=== PATIENT | male | born 1995 | race Caucasian/White ===

== ENCOUNTER 2016-09-26 20:01 | Emergency (ER) | payer SELFPAY ==
[2016-09-26] MEDS ORDERED: PENICILLIN V POTASSIUM 500 MG TABLET PO ONE (22:24)
[2016-09-26] MEDS ORDERED: TRAMADOL HCL 50 MG TABLET PO ONE (22:24)
--- NOTE | 2016-09-26 22:27 | ER Document Report ---
ED General - General Chief Complaint: Jaw Pain Stated Complaint: MOUTH PAIN Time Seen by Provider: 09/26/16 22:00 Notes: Patient is a 21-year-old male who presents with complaint of pain in his jaw. Patient has several fractured teeth. Most his pain is coming from his upper left molar and premolars. No swelling. No difficulty breathing. No difficulty swallowing. No other complaints at this time. Pain does radiate into his left cheek and face TRAVEL OUTSIDE OF THE [place] IN LAST 30 DAYS: No - Related Data Allergies/Adverse Reactions: No Known Allergies Allergy (Unverified 07/16/15 19:09) Past Medical History - Social History Smoking Status: Never Smoker Frequency of alcohol use: None Drug Abuse: None Family History: Malignancy Patient has suicidal ideation: No Patient has homicidal ideation: No Renal/ Medical History: Denies: Hx Peritoneal Dialysis Past Surgical History: Reports: Hx Abdominal Surgery - hernia x 2, Hx Inguinal Hernia - Bilateral, Hx Oral Surgery - Immunizations Hx Diphtheria, Pertussis, Tetanus Vaccination: Yes Review of Systems - Review of Systems Notes: My Normal Review Basic REVIEW OF SYSTEMS: CONSTITUTIONAL : Denies fever, chills, or sweats. Denies recent illness. EENT: Dental pain RESPIRATORY: Denies cough, cold, or chest congestion. Denies shortness of breath, difficulty breathing, or wheezing. GASTROINTESTINAL: Denies abdominal pain. Denies nausea, vomiting, or diarrhea. Denies constipation. Last BM: MUSCULOSKELETAL: Denies neck or back pain or joint pain or swelling. SKIN: Denies rash or skin lesions. NEUROLOGICAL: Denies altered mental status or loss of consciousness. Denies headache. Denies weakness or paralysis or loss of use of either side. Denies problems with gait or speech. Denies sensory or motor loss. ALL OTHER SYSTEMS REVIEWED AND NEGATIVE. Physical Exam - Vital signs Vitals: Temp Pulse Resp BP Pulse Ox 98.3 F 60 16 135/77 H 99 09/26/16 20:07 09/26/16 20:07 09/26/16 20:07 09/26/16 20:07 09/26/16 20:07 - Notes Notes: General Appearance: Well nourished, alert, cooperative, no acute distress, moderate obvious discomfort. Vitals: reviewed, See vital signs table. Head: no swelling or tenderness to the head Eyes: PERRL, EOMI, Conjuctiva clear Mouth: several broken teeth over the left upper jaw with multple dental caries Throat: No tonsillar inflammation, No airway obstruction, No lymphadenopathy Neck: Supple, no neck tenderness, Skin: warm, dry, appropriate color, no rash Neuro: speech clear, oriented x 3, normal affect, responds appropriately to questions. Course - Vital Signs Vital signs: Temp Pulse Resp BP Pulse Ox 97.5 F 50 L 18 122/78 99 09/26/16 22:31 09/26/16 22:31 09/26/16 22:31 09/26/16 22:31 09/26/16 22:31 - Transfer of Care Notes: 09/27/16 05:21 Has not followed up with the dentist because of financial issues. I did inform him of the new dental clinic that will be opening October 14. I informed him that he should still try to see a dentist as soon as possible. I will place him on antibiotics. I encouraged him return to ER if he has worsening pain, difficulty breathing, difficulty swallowing, or if he feels unwell. Patient agrees with plan and will be discharged home. Dictation of this chart was performed using voice recognition software; therefore, there may be some unintended grammatical errors. Discharge - Discharge Clinical Impression: Pain, dental Condition: Good Disposition: HOME, SELF-CARE Instructions: Oral Narcotic Medication ([facility]) Additional Instructions: Please call the number for the [facility]. They will be opening a dental clinic soon. Please see a dentist as soon as possible. The new Dental clinic is scheduled to open October 14. Please return to the ER immediately if you have facial swelling, difficulty breathing, or difficulty swallowing. Prescriptions: Penicillin V Potassium [Penicillin Vk 500 mg Tablet] 500 mg PO BID #14 tablet Tramadol HCl 50 mg PO Q6 PRN #12 tablet PRN Reason:
[2016-09-26 22:33] VITALS: BP 122/78
== END 2016-09-26 22:35 | disposition home or self-care (01) ==
LOC: ER 20:01
DX: K08.9 Disorder of teeth and supporting structures, unspecified (principal)
CPT/HCPCS: 99282

== ENCOUNTER 2016-12-04 19:33 | Emergency (ER) | payer SELFPAY ==
[2016-12-04 20:04] VITALS: BP 119/75
--- NOTE | 2016-12-04 20:22 | ER Document Report ---
ED GI/ - General Chief Complaint: Penile Problem Stated Complaint: PENILE PROBLEM Time Seen by Provider: 12/04/16 20:16 Notes: The patient is a 21-year-old male who presents with 2 days of a painful sore on the shaft of his penis. He has had multiple partners and has not used protection. Patient denies testicular pain, penile discharge or fevers. TRAVEL OUTSIDE OF THE [place] IN LAST 30 DAYS: No - Related Data Allergies/Adverse Reactions: No Known Allergies Allergy (Unverified 07/16/15 19:09) Past Medical History - General Information source: Patient - Social History Smoking Status: Unknown if Ever Smoked Family History: Malignancy Patient has suicidal ideation: No Patient has homicidal ideation: No Renal/ Medical History: Denies: Hx Peritoneal Dialysis Past Surgical History: Reports: Hx Abdominal Surgery - hernia x 2, Hx Inguinal Hernia - Bilateral, Hx Oral Surgery - Immunizations Hx Diphtheria, Pertussis, Tetanus Vaccination: Yes Review of Systems - Review of Systems Notes: REVIEW OF SYSTEMS: CONSTITUTIONAL: -fevers, -chills EENT: -eye pain, -difficulty swallowing, -nasal congestion CARDIOVASCULAR:-chest pain, -syncope. RESPIRATORY: -cough, -SOB GASTROINTESTINAL: -abdominal pain, - nausea, -vomiting, -diarrhea GENITOURINARY: -dysuria, -hematuria, +penile sore MUSCULOSKELETAL: -back pain, -neck pain HEMATOLOGIC: -easy bruising or bleeding. LYMPHATIC: -swollen, enlarged glands. NEUROLOGICAL: -altered mental status or loss of consciousness, -headache, - neurologic symptoms PSYCHIATRIC: -anxiety, -depression. ALL OTHER SYSTEMS REVIEWED AND NEGATIVE. Physical Exam - Vital signs Vitals: Temp Pulse Resp BP Pulse Ox 97.6 F 58 L 18 119/75 100 12/04/16 20:01 12/04/16 20:01 12/04/16 20:01 12/04/16 20:01 12/04/16 20:01 - Notes Notes: PHYSICAL EXAMINATION: GENERAL: Well-appearing, well-nourished and in no acute distress. HEAD: Atraumatic, normocephalic. EYES: Pupils equal round and reactive to light, extraocular movements intact, sclera anicteric, conjunctiva are normal. ENT: nares patent, oropharynx clear without exudates. Moist mucous membranes. NECK: Normal range of motion, supple without lymphadenopathy LUNGS: Breath sounds clear to auscultation bilaterally and equal. No wheezes rales or rhonchi. HEART: Regular rate and rhythm without murmurs ABDOMEN: Soft, nontender, normoactive bowel sounds. No guarding, no rebound. No masses appreciated. : vesicle on shaft of penis with small amount of surrounding erythema EXTREMITIES: Normal range of motion, no pitting or edema. No cyanosis. NEUROLOGICAL: Cranial nerves grossly intact. Normal speech, normal gait. Normal sensory and motor exams. PSYCH: Normal mood, normal affect. Course - Re-evaluation Re-evalutation: Patient with evidence of a herpetic lesion on the shaft of his penis. Will begin acyclovir and counseled patient about using condoms. Him and his girlfriend will follow up with the health department. - Vital Signs Vital signs: Temp Pulse Resp BP Pulse Ox 97.6 F 58 L 18 119/75 100 12/04/16 20:01 12/04/16 20:01 12/04/16 20:01 12/04/16 20:01 12/04/16 20:01 Discharge - Discharge Clinical Impression: Herpetic lesion Condition: Stable Disposition: HOME, SELF-CARE Additional Instructions: Herpes Simplex You have been diagnosed as having a herpes virus infection. The herpes ( "cold sore") virus usually infects the areas around the mouth. However, it can cause infection on any skin surface. It's particularly dangerous if infection occurs in the eye. On the initial infection, herpes blisters erupt over a large area. There is usually fever and aching. This infection takes about 14 days to resolve. After the initial infection, herpes sores can erupt on small areas (usually the lips), then heal in about a week. Sunburn, fever, local irritation, or even emotions can provoke a "fever blister" attack of herpes. Initial herpes infections can be treated with medication if severe. Subsequent attacks are usually given only local care to reduce symptoms; however , the physician may decide to prescribe anti-viral medication if your case warrants it. Call the doctor if you are worsening in any way. Prescriptions: Acyclovir [Acyclovir 400 mg Tablet] 400 mg PO TID 10 Days tablet [facility] - Follow up as needed
== END 2016-12-04 20:22 | disposition home or self-care (01) ==
LOC: ER 19:33
DX: A60.01 Herpesviral infection of penis (principal); N48.89 Other specified disorders of penis
CPT/HCPCS: 99283

== ENCOUNTER 2019-09-11 07:13 | Emergency (ER) | payer SELFPAY ==
[2019-09-11] MEDS ORDERED: CEFTRIAXONE INJ 1000 MG VIAL IM ONE (09:31)
[2019-09-11] MEDS ORDERED: LIDOCAINE 1% INJ-PF (10 MG/ML) 30 ML SDV INJ ONE (09:31)
--- NOTE | 2019-09-11 09:34 | ER Document Report ---
HPI - HPI Time Seen by Provider: 09/11/19 08:47 Pain Level: 3 Notes: 24-year-old male presents emergency room for complaints of left lower dental pain that started yesterday. Patient states he is an avid smoker at least a pack a day. Has not tried any bkia-tto-cihglpo medications. Worse with time, nothing makes better. Does not have an upcoming dental appointment. Pain is 4 out of 10. Denies fevers, chills, chest pain,palpitations, shortness of breath, dyspnea, nausea, vomiting, diarrhea, abdominal pain, hematuria,blurred vision, double vision, loss of vision, speech changes, LH, dizziness, syncope, headaches, wheezing, ST, URI, neck pain, weakness, bowel or bladder dysfunction, saddle anesthesia, numbness or tingling in bilateral upper or lower extremities equally, muscle paralysis, weakness in bilateral upper or lower extremities equally or rash. MEDICATIONS: I agree with the patient medications as charted by the RN. ALLERGIES: I agree with the allergies as charted by the RN. PAST MEDICAL HISTORY/PAST SURGICAL HISTORY: Reviewed and agree as charted by RN. SOCIAL HISTORY: Reviewed and agree as charted by RN. FAMILY HISTORY: No significant familial comorbid conditions directly related to patient complaint EXAM: Reviewed vital signs as charted by RN. REVIEW OF SYSTEMS:reviewed vital signs by RN CONSTITUTIONAL : Denies fever, chills, or sweats. Denies recent illness. EENT: reports denal pain in left lower mouth. Denies eye, ear, throat, or mouth pain or symptoms. Denies nasal or sinus congestion or discharge. Denies throat, tongue, or mouth swelling or difficulty swallowing. CARDIOVASCULAR: Denies chest pain. Denies palpitations or racing or irregular heart beat. Denies ankle edema. RESPIRATORY: Denies cough, cold, or chest congestion. Denies shortness of breath, difficulty breathing, or wheezing. GASTROINTESTINAL: Denies abdominal pain or distention. Denies nausea, vomiting, or diarrhea. Denies blood in vomitus, stools, or per rectum. Denies black, tarry stools. Denies constipation. GENITOURINARY: Denies difficulty urinating, painful urination, burning, frequency, blood in urine, or discharge. MUSCULOSKELETAL: Denies back or neck pain or stiffness. Denies joint pain or swelling. SKIN: Denies rash, lesions or sores. HEMATOLOGIC : Denies easy bruising or bleeding. LYMPHATIC: Denies swollen, enlarged glands. NEUROLOGICAL: Denies confusion or altered mental status. Denies passing out or loss of consciousness. Denies dizziness or lightheadedness. Denies headache. Denies weakness or paralysis or loss of use of either side. Denies problems with gait or speech. Denies sensory loss, numbness, or tingling. Denies seizures. PSYCHIATRIC: Denies anxiety or stress. Denies depression, suicidal ideation, or homicidal ideation. ALL OTHER SYSTEMS REVIEWED AND NEGATIVE. Dictation was performed using [employer] recognition software PHYSICAL EXAMINATION: GENERAL: Well-appearing, well-nourished and in no acute distress. HEAD: Atraumatic, normocephalic. EYES: Pupils equal round and reactive to light, extraocular movements intact, sclera anicteric, conjunctiva are normal. ENT: Nares patent, oropharynx clear without exudates. Moist mucous membranes.TM with effusion bilaterally, no erythema. TMs intact. #18,19 gingivas with swelling, erythema and induration. No drainage or open wounds. No fluctuance. No facial swelling. Poor oral dentition, left lower jaw with moderate dental caries, no definite or effusion. no trismus noted. Uvula is midline. noted scant swelling to left lower jaw. NECK: Normal range of motion, supple without lymphadenopathy LUNGS: Breath sounds clear to auscultation bilaterally and equal. No wheezes rales or rhonchi. HEART: Regular rate and rhythm without murmurs ABDOMEN: Soft, nontender, nondistended abdomen. No guarding, no rebound. No masses appreciated. Musculoskeletal: Normal range of motion, no pitting or edema. No cyanosis. NEUROLOGICAL: Cranial nerves grossly intact. Normal speech, normal gait. Normal sensory, motor exams PSYCH: Normal mood, normal affect. SKIN: Warm, Dry, normal turgor, no rashes or lesions noted. - EENT EENT: DENIES: Sore Throat, Ear Pain, Eye problems - NEURO Neurology: DENIES: Headache, Weakness, Vision blurred, Dizzinesss / Vertigo - CARDIOVASCULAR Cardiovascular: DENIES: Chest pain - RESPIRATORY Respiratory: DENIES: Trouble Breathing, Coughing - GASTROINTESTINAL Gastrointestinal: DENIES: Abdominal Pain, Black / Bloody Stools - URINARY Urinary: DENIES: Dysuria, Urgency, Frequency - MUSCULOSKELETAL Musculoskeletal: DENIES: Extremity pain Past Medical History - General Information source: Patient - Social History Smoking Status: Current Every Day Smoker Drug Abuse: Marijuana Family History: Malignancy Patient has homicidal ideation: No Renal/ Medical History: Denies: Hx Peritoneal Dialysis Past Surgical History: Reports: Hx Abdominal Surgery - hernia x 2, Hx Inguinal Hernia - Bilateral, Hx Oral Surgery - Immunizations Hx Diphtheria, Pertussis, Tetanus Vaccination: Yes Vertical Provider Document - CONSTITUTIONAL Agree With Documented VS: Yes Exam Limitations: No Limitations General Appearance: WD/WN - INFECTION CONTROL TRAVEL OUTSIDE OF THE [place] IN LAST 30 DAYS: No Course - Re-evaluation Re-evalutation: 09/11/19 09:42 Afebrile vital stable no distress. Nurses notes reviewed. Discussed with patient that he does need to follow-up with a dentist, apply heat 20 minutes on 20 minutes off several times a day, take antibiotic as directed. Discussed with patient that he does need to quit smoking and does need to press his teeth at least twice a day. Patient given 1 g Rocephin IM as well as outpatient oral clindamycin every 6 hours for 7 days. After performing a Medical Screening Examination, I estimate there is LOW risk for a DEEP SPACE INFECTION (e.g., LORA'S ANGINA OR RETROPHARYNGEAL ABSCESS), MENINGITIS, INTRACRANIAL HEMORRHAGE, or AIRWAY COMPROMISE, thus I consider the discharge disposition reasonable. Also, there is no evidence or peritonitis, sepsis, or toxicity. I have reevaluated this patient multiple times and no significant life threatening changes are noted. The patient and I have discussed the diagnosis and risks, and we agree with discharging home with close follow-up with the understanding that symptoms and presentations can change. We also discussed returning to the Emergency Department immediately if new or worsening symptoms occur. We have discussed the symptoms which are most concerning (e.g., changing or worsening pain, trouble swallowing or breathing, neck stiffness or fever) that necessitate immediate return. - Vital Signs Vital signs: Temp Pulse Resp BP Pulse Ox 98.5 F 88 18 139/91 H 96 09/11/19 07:18 09/11/19 07:18 09/11/19 07:18 09/11/19 07:18 09/11/19 07:18 Discharge - Discharge Clinical Impression: Dental abscess, Dental caries Condition: Stable Disposition: HOME, SELF-CARE Instructions: Abscess ([facility]), [facility], Clindamycin ([facility]), Dentist, Rocephin ([facility]), Toothache ([facility]) Additional Instructions: Dental Infection or Abscess He received 1 g of Rocephin IM. Please apply heat 20 minutes on 20 minutes off several times a day. Take antibiotics as directed with food. you have an infection, perhaps an abscess (pus formation) of the gum around one of your teeth, which is probably decayed. If there is an abscess, it may drain on its own or it may need to be opened or lanced. Severe swelling or drainage around a tooth usually means a deep dental abscess which usually requires evaluation and treatment by a dentist or oral surgeon. Antibiotics may be prescribed while awaiting dental treatment. If you develop high fever with chills, worsening pain, or increasing swelling in the area, see a dentist or oral surgeon immediately or return to the Emergency Department immediately. Return immediately for any new or worsening symptoms. Follow up with primary care provider, call tomorrow to make followup appointment. Prescriptions: Clindamycin HCl 300 mg PO Q6H #28 capsule Naproxen 500 mg PO BID #10 tablet Forms: Return to Work Referrals: JUAN OSWALD MD [COUNT INCLUDES THE [facility] BASED STAFF] - Follow up as needed
[2019-09-11 09:39] VITALS: BP 127/86
== END 2019-09-11 09:45 | disposition home or self-care (01) ==
LOC: ER 07:13
DX: K04.7 Periapical abscess without sinus (principal); K02.9 Dental caries, unspecified; K08.89 Other specified disorders of teeth and supporting structures; R68.84 Jaw pain; R22.0 Localized swelling, mass and lump, head; F17.200 Nicotine dependence, unspecified, uncomplicated
CPT/HCPCS: 99282; 96372; J3490; J0696